=== PATIENT | male | born 1975 | race Caucasian/White ===

== ENCOUNTER 2021-10-08 15:09 | Emergency (ER) | payer BC ==
[~2021-10-08] VITALS: Ht 180.3 cm; Wt 99.8 kg
[2021-10-08 15:20] VITALS: BP_SYST 152
--- NOTE | 2021-10-08 15:20 | NUR ---
NIGEL Ybarra at bedside.
--- NOTE | 2021-10-08 15:20 | NUR ---
Patient to ER bed 7 for evaluation. Side rails up. Report given to Nicole GABRIEL.
--- NOTE | 2021-10-08 15:25 | NUR ---
Patient A/Ox4, VSS, resp even and unlabored. Patient ambulated into ED for c/o laceration to the left forearm. Patient reports pain level of 5/10. Patient states he was taking noe tags off of his daughter's new helmet with his pocket knife when incident occured. Nad noted at this time.
[2021-10-08] MEDS ORDERED: LIDOCAINE 1% 10 MG/ML, 20 ML MDV INJ ONE (15:30)
[2021-10-08] MEDS ORDERED: DIPH-TET-PERTUS Vaccine 0.5 ML VIAL (ADACEL) I.M. ONE (15:30)
--- NOTE | 2021-10-08 15:30 | NUR ---
Laceration tray set up at bedside for ED MD.
--- NOTE | 2021-10-08 15:31 | NUR ---
Patient's wound cleansed with NS and patted dry; no active bleeding at this time. Patient tolerated procedure well.
[2021-10-08] MEDS ORDERED: BACEYEO OP (16:05)
[2021-10-08] MEDS ORDERED: IBUP-1969 PO (16:05)
--- NOTE | 2021-10-08 16:17 | NUR ---
Lidocaine administered by ER MD Ybarra at bedside
--- NOTE | 2021-10-08 16:17 | NUR ---
ER MD Ybarra at bedside doing lac repair.
[2021-10-08] MEDS ORDERED: BACITRACIN ZINC 15 GM TOPICAL OINTMENT TP SCH (16:30)
--- NOTE | 2021-10-08 16:30 | NUR ---
Patient given written and verbal discharge instructions and verbalizes understanding. ER MD discussed with patient the results and treatment provided. Patient in stable condition. ID arm band removed. Lac repair intact and dressing applied, no active bleeding. Rx of 600mg Ibuprofen and bacitracin given. Patient educated on pain management and to follow up with PMD. Patient A/Ox4, VSS, resp even and unlabored. Opportunity for questions provided and answered. Nad noted at this time.
[2021-10-08 16:37] VITALS: BP_SYST 143
== END 2021-10-08 16:30 | disposition home or self-care (01) ==
LOC: SED 15:09
DX: S51.812A Laceration without foreign body of left forearm, initial encounter (principal); E11.9 Type 2 diabetes mellitus without complications; W26.8XXA Contact with other sharp object(s), not elsewhere classified, initial encounter; Y93.89 Activity, other specified; Y92.89 Other specified places as the place of occurrence of the external cause; Y99.8 Other external cause status
CPT/HCPCS: 12002; 99282; J2001; 90715